=== PATIENT | male | born 1930 | race Caucasian/White ===

== ENCOUNTER 2016-10-11 12:31 | Inpatient (IN) | payer OTHER ==
[~2016-10-11] VITALS: Ht 188 cm; Wt 97.1 kg
[~2016-10-11 12:31] MED LIST: ADULT LOW DOSE81 M1 PO; ASPIR-TRIN325 M1 PO; Casodex PO; Cozaar PO; GLIPIZIDE ER2.5 M1 PO; HALCION0.25 MG PO; HYDROCHLOROTH12.5 M1 PO; HYDRODIURIL,O12.5 M2 PO; LOPRESSOR25 MG PO; LOSARTAN POTASS25 MG PO; NIACIN 50 MG TA50 MG PO; Niacin PO; Norco 7.5/325 PO; PLAVIX75 MG PO; Protonix PO; TOPROL XL6.25 MG PO; VITAMIN B12-FO1 EACH PO; ZETIA10 MG PO; ZOLADEX3.6 MG PO; oxyCODONE PO
[2016-10-11 13:50] LABS: HEMATOCRIT 33.6 % (38.0-50.0); MCH 29.1 PG (29.0-34.0); MCHC 32.7 G/DL (30.0-36.0); MCV 88.9 FL (86-99); RBC DIS.WIDTH-CV 17.2 % (11.8-14.6); RED BLOOD COUNT 3.78 M/uL (4.00-5.50); WHITE BLOOD COUNT 8.3 K/uL (4.1-10.2)
[2016-10-11 13:59] LABS: CHLORIDE 99 mEq/L (99-109); POTASSIUM 5.2 mEq/L (3.7-5.4); SODIUM 138 mEq/L (136-147)
[2016-10-11 14:01] LABS: GLUCOSE 117 mg/dL (70-99)
[2016-10-11 14:02] LABS: ANION GAP 16 MEQ/L (2-14)
[2016-10-11 14:03] LABS: TOTAL BILIRUBIN 0.9 mg/dL (0.0-1.0)
[2016-10-11 14:05] LABS: ALKALINE PHOSPHATASE 48 IU/L (3-129); GFR ESTIMATE (CALCULATED) 20 mL/min/
[2016-10-11 14:06] LABS: UREA NITROGEN (BUN) 54 mg/dL (9-23)
[2016-10-11 14:07] LABS: PLATELET COUNT 52 K/uL (156-360)
[2016-10-11 14:42] LABS: ABS NEUTROPHIL COUNT 2.1; ANISOCYTOSIS 1+; BASOPHILS 4.5 %; EOSINOPHIL ABS CT 1.9; INSTRUMENT ABS NEUTROPHIL CT 0.8 K/uL; MYELOCYTES 0.5 %; OVALOCYTES 1+; PLAT.SUFFICIENCY DECREASED
[2016-10-11] MEDS ORDERED: ASPIR 8181 M1 PO (14:50)
[2016-10-11] MEDS ORDERED: METOPROLOL TART25 MG PO (14:50)
[2016-10-11] MEDS ORDERED: CASODEX50 MG PO (14:51)
[2016-10-11] MEDS ORDERED: COZAAR100 MG PO (14:51)
[2016-10-11] MEDS ORDERED: SANTYL30 GM TP (14:52)
[2016-10-11] MEDS ORDERED: OXYCODONE HCL30 MG PO (14:52)
[2016-10-11 15:14] LABS: ADD MIUA? YES; BILIRUBIN NEGATIVE; BLOOD LARGE; COLOR YELLOW ((YELLOW)); GLUCOSE (STRIP) NEGATIVE; KETONES NEGATIVE; LEUKOCYTES NEGATIVE; NITRITE NEGATIVE; PROTEIN (STRIP) 30; SPECIFIC GRAVITY 1.013 (1.000-1.030); UROBILINOGEN 0.2 MG/DL (0.2-1.0)
[2016-10-11 15:41] LABS: BACTERIA RARE /HPF; EPITHELIAL CELLS 1+ /HPF; MUCUS NONE SEEN /LPF; RED BLOOD CELLS TNTC /HPF (0-5); WHITE BLOOD CELLS 0-5 /HPF (0-5)
[2016-10-11 16:50] LABS: C-REACTIVE PROTEIN 85.6 MG/L (0-10)
[2016-10-11 18:15] VITALS: BP 132/61
[2016-10-11 20:11] VITALS: BP 100/54
[2016-10-11 22:56] VITALS: BP 114/56
[2016-10-12 04:14] VITALS: BP 104/55
[2016-10-12 07:41] VITALS: BP 110/70
[2016-10-12 07:49] LABS: ANION GAP 9 MEQ/L (2-14); CHLORIDE 104 MEQ/L (99-109); GFR ESTIMATE (CALCULATED) 25 mL/min/; GLUCOSE 150 mg/dL (70-99); POTASSIUM 4.3 MEQ/L (3.7-5.4); SAMPLE HEMOLYSIS CHECK 0; SAMPLE ICTERIC CHECK 0; SAMPLE LIPEMIA CHECK 0; SODIUM 138 MEQ/L (136-147); UREA NITROGEN (BUN) 44 mg/dL (9-23)
[2016-10-12 08:12] LABS: POINT-OF-CARE USER ID ENVKC36
[2016-10-12 09:27] LABS: INTER. NORMALIZED RATIO 1.5; PROTHROMBIN TIME 15.3 (9.2-11.2); PTT 33.3 (25-32)
[2016-10-12 12:21] LABS: POINT-OF-CARE METER ID UU13113781
[2016-10-12 12:49] VITALS: BP 104/56
[2016-10-12 14:06] LABS: HEMATOCRIT 29.4 % (38.0-50.0); MCH 29.4 PG (29.0-34.0); MCHC 32.7 G/DL (30.0-36.0); MCV 90.2 FL (86-99); RBC DIS.WIDTH-CV 17.1 % (11.8-14.6); RED BLOOD COUNT 3.26 M/uL (4.00-5.50); WHITE BLOOD COUNT 7.5 K/uL (4.1-10.2)
[2016-10-12 14:44] LABS: ABS NEUTROPHIL COUNT 1.9; ANISOCYTOSIS 1+; BAND NEUTROPHILS 2.4 % (0-8.0); BASOPHILS 14.2 %; EOSINOPHIL ABS CT 1.6; EOSINOPHILS 21.1 % (0-5.0); IMM.PLATELET FRACTION 6.7 (1-7); INSTRUMENT ABS NEUTROPHIL CT 1.5 K/uL; LYMPHOCYTES 22.1 % (15.0-45.0); MEAN PLAT.VOLUME 11.2 uM^3 (9.0-12.4); MICROCYTOSIS 1+; PLAT.SUFFICIENCY DECREASED; POIKILOCYTOSIS 2+; SEG.NEUTROPHILS 23.5 % (46.0-76.0); SPHEROCYTES 1+
[2016-10-12 14:45] LABS: PLATELET COUNT 36 K/uL (156-360)
[2016-10-12 16:31] LABS: HEMATOCRIT 25.8 % (38.0-50.0); MCH 28.8 PG (29.0-34.0); MCHC 32.2 G/DL (30.0-36.0); MCV 89.6 FL (86-99); RBC DIS.WIDTH-CV 17.1 % (11.8-14.6); RBC DIS.WIDTH-SD 55.3 % (39-53); RED BLOOD COUNT 2.88 M/uL (4.00-5.50); WHITE BLOOD COUNT 6.4 K/uL (4.1-10.2)
[2016-10-12 16:40] LABS: POINT-OF-CARE METER ID UU14174216; POINT-OF-CARE USER ID ENVKC36
[2016-10-12 17:12] VITALS: BP 98/52
[2016-10-12 17:35] LABS: ABS NEUTROPHIL COUNT 1.4; ANISOCYTOSIS 2+; EOSINOPHIL ABS CT 1.7; HYPOCHROMASIA 3+; IMM.PLATELET FRACTION 5.9 (1-7); INSTRUMENT ABS NEUTROPHIL CT 1.7 K/uL; MACROCYTES 1+; MEAN PLAT.VOLUME 11.5 uM^3 (9.0-12.4); MICROCYTOSIS 1+; PLAT.SUFFICIENCY DECREASED; PLATELET COUNT 35 K/uL (156-360)
[2016-10-12 20:28] LABS: BASOPHIL COUNT 0.1 K/uL (0-0.1); EOSINOPHIL COUNT 0.9 K/uL (0-0.3); HEMATOCRIT 25.7 % (38.0-50.0); IMMATURE GRANULOCYTE (%) 1.1 % (0.0-0.7); IMMATURE GRANULOCYTE COUNT 0.1 K/uL; INSTRUMENT ABS NEUTROPHIL CT 0.8 K/uL; LYMPHOCYTE COUNT 1.5 K/uL (1.0-2.8); MCH 29.5 PG (29.0-34.0); MCHC 32.7 G/DL (30.0-36.0); MCV 90.2 FL (86-99); MONOCYTE (%) 43.8 % (3-12); MONOCYTE COUNT 2.7 K/uL (0-0.8); NEUTROPHIL (%) 13.6 % (45-76); NEUTROPHIL COUNT 0.8 K/uL (1.8-6.4); RBC DIS.WIDTH-SD 55.4 % (39-53); RED BLOOD COUNT 2.85 M/uL (4.00-5.50); WHITE BLOOD COUNT 6.2 K/uL (4.1-10.2)
[2016-10-12 20:55] LABS: IMM.PLATELET FRACTION 6.8 (1-7); MEAN PLAT.VOLUME 10.7 uM^3 (9.0-12.4); PLATELET COUNT 31 K/uL (156-360)
[2016-10-12 21:01] LABS: ANISOCYTOSIS 2+; ATYPICAL LYMPHOCYTE 6.1 %; BAND NEUTROPHILS 8.8 % (0-8.0); BASOPHILS 15.8 %; EOSINOPHIL ABS CT 1.3; EOSINOPHILS 20.2 % (0-5.0); HYPOCHROMASIA 2+; METAMYELOCYTES 1.7 %; MICROCYTOSIS 2+; MYELOCYTES 0.9 %; PLAT.SUFFICIENCY DECREASED; SMUDGE CELLS 13.2
[2016-10-12 21:02] LABS: LYMPHOCYTES 34.2 % (15.0-45.0)
[2016-10-12 21:50] VITALS: BP 100/52
[2016-10-13 00:32] VITALS: BP 97/44
[2016-10-13 04:43] VITALS: BP 108/56
[2016-10-13 07:00] LABS: MCH 28.8 PG (29.0-34.0); MCHC 31.9 G/DL (30.0-36.0); MCV 90.3 FL (86-99); RBC DIS.WIDTH-CV 16.9 % (11.8-14.6); RBC DIS.WIDTH-SD 55.3 % (39-53); RED BLOOD COUNT 2.99 M/uL (4.00-5.50)
[2016-10-13 07:28] LABS: ANION GAP 9 MEQ/L (2-14); CHLORIDE 107 MEQ/L (99-109); GFR ESTIMATE (CALCULATED) 38 mL/min/; GLUCOSE 118 mg/dL (70-99); MAGNESIUM 1.3 mg/dl (1.3-2.7); POTASSIUM 4.1 MEQ/L (3.7-5.4); SAMPLE HEMOLYSIS CHECK 0; SAMPLE ICTERIC CHECK 0; SAMPLE LIPEMIA CHECK 0; SODIUM 140 MEQ/L (136-147); UREA NITROGEN (BUN) 30 mg/dL (9-23)
[2016-10-13 07:50] VITALS: BP 112/73
[2016-10-13 08:00] LABS: BASOPHIL COUNT 0.1 K/uL (0-0.1); EOSINOPHIL (%) 14.1 % (0-5); EOSINOPHIL COUNT 0.7 K/uL (0-0.3); IMM.PLATELET FRACTION 5.8 (1-7); IMMATURE GRANULOCYTE (%) 1.8 % (0.0-0.7); IMMATURE GRANULOCYTE COUNT 0.1 K/uL; INSTRUMENT ABS NEUTROPHIL CT 0.7 K/uL; LYMPHOCYTE COUNT 1.2 K/uL (1.0-2.8); MEAN PLAT.VOLUME 11.7 uM^3 (9.0-12.4); MONOCYTE (%) 45.3 % (3-12); MONOCYTE COUNT 2.3 K/uL (0-0.8); NEUTROPHIL (%) 14.1 % (45-76); NEUTROPHIL COUNT 0.7 K/uL (1.8-6.4); PLAT.SUFFICIENCY DECREASED
[2016-10-13 08:04] LABS: PLATELET COUNT 27 K/uL (156-360)
[2016-10-13 11:35] VITALS: BP 98/51
[2016-10-13 15:23] LABS: IMM.RETIC FRACTION 15.9 % (3-19); RETIC HGB EQUIVALENT 31.5 (28-36); RETICULOCYTE COUNT 0.9 % (0.5-1.8)
[2016-10-13 15:49] LABS: D-DIMER LATEX POSITIVE
[2016-10-13 16:07] LABS: ALKALINE PHOSPHATASE 41 IU/L (3-129); DIRECT BILIRUBIN 0.1 mg/dL (0.0-0.3); LACTATE DEHYDROGENASE 167 IU/L (20-246); TOTAL BILIRUBIN 0.5 MG/DL (0.0-1.0)
[2016-10-13 17:30] VITALS: BP 114/59
[2016-10-13 18:21] LABS: SCHISTOCYTES RARE
[2016-10-13 19:30] VITALS: BP 128/61
[2016-10-14] VITALS (15 sets, daily range): BP systolic 110–143; BP diastolic 53–69
[2016-10-14 07:10] LABS: BASOPHIL COUNT 0.1 K/uL (0-0.1); EOSINOPHIL COUNT 0.5 K/uL (0-0.3); HEMATOCRIT 24.3 % (38.0-50.0); IMMATURE GRANULOCYTE (%) 3.1 % (0.0-0.7); IMMATURE GRANULOCYTE COUNT 0.2 K/uL; INSTRUMENT ABS NEUTROPHIL CT 1.2 K/uL; LYMPHOCYTE COUNT 1.2 K/uL (1.0-2.8); MCH 28.7 PG (29.0-34.0); MCHC 32.5 G/DL (30.0-36.0); MCV 88.4 FL (86-99); MONOCYTE (%) 47.6 % (3-12); MONOCYTE COUNT 2.9 K/uL (0-0.8); NEUTROPHIL (%) 20.3 % (45-76); NEUTROPHIL COUNT 1.2 K/uL (1.8-6.4); RBC DIS.WIDTH-CV 16.9 % (11.8-14.6); RBC DIS.WIDTH-SD 54.8 % (39-53); RED BLOOD COUNT 2.75 M/uL (4.00-5.50); WHITE BLOOD COUNT 6.1 K/uL (4.1-10.2)
[2016-10-14 07:36] LABS: ANION GAP 8 MEQ/L (2-14); CHLORIDE 106 MEQ/L (99-109); GFR ESTIMATE (CALCULATED) 51 mL/min/; GLUCOSE 118 mg/dL (70-99); MAGNESIUM 1.2 mg/dl (1.3-2.7); POTASSIUM 4.2 MEQ/L (3.7-5.4); SAMPLE HEMOLYSIS CHECK 0; SAMPLE ICTERIC CHECK 0; SAMPLE LIPEMIA CHECK 0; SODIUM 139 MEQ/L (136-147); UREA NITROGEN (BUN) 22 mg/dL (9-23)
[2016-10-14 07:43] LABS: PLAT.SUFFICIENCY VERY DECREASED
[2016-10-14 08:58] LABS: IMM.PLATELET FRACTION 4.9 (1-7); MEAN PLAT.VOLUME 10.7 uM^3 (9.0-12.4); PLATELET COUNT 28 K/uL (156-360)
[2016-10-14 11:10] LABS: POINT-OF-CARE METER ID UU13113781
[2016-10-14 16:18] LABS: POINT-OF-CARE METER ID UU13113781
[2016-10-14 18:59] LABS: HEMATOCRIT 34.1 % (38.0-50.0); MCV 88.1 FL (86-99)
[2016-10-15] VITALS (15 sets, daily range): BP systolic 102–134; BP diastolic 51–73
[2016-10-15 01:07] LABS: BASOPHIL COUNT 0.1 K/uL (0-0.1); EOSINOPHIL COUNT 0.6 K/uL (0-0.3); HEMATOCRIT 32.4 % (38.0-50.0); LYMPHOCYTE COUNT 1.3 K/uL (1.0-2.8); MCH 29.1 PG (29.0-34.0); MCHC 33.3 G/DL (30.0-36.0); MCV 87.3 FL (86-99); MONOCYTE (%) 50.9 % (3-12); MONOCYTE COUNT 4.1 K/uL (0-0.8); NEUTROPHIL (%) 24.5 % (45-76); RBC DIS.WIDTH-CV 15.9 % (11.8-14.6)
[2016-10-15 01:13] LABS: RED BLOOD COUNT 3.71 M/uL (4.00-5.50)
[2016-10-15 01:18] LABS: TOTAL BILIRUBIN 0.8 mg/dL (0.0-1.0)
[2016-10-15 01:19] LABS: ALKALINE PHOSPHATASE 39 IU/L (3-129)
[2016-10-15 01:20] LABS: INTER. NORMALIZED RATIO 1.5; PROTHROMBIN TIME 15.1 (9.2-11.2); PTT 34.5 (25-32)
[2016-10-15 01:22] LABS: DIRECT BILIRUBIN 0.3 mg/dL (0.0-0.3)
[2016-10-15 01:37] LABS: FIBRINOGEN 131 MG/DL (160-450)
[2016-10-15 01:50] LABS: IMM.PLATELET FRACTION 6.3 (1-7); MEAN PLAT.VOLUME 11.2 uM^3 (9.0-12.4); PLATELET COUNT 31 K/uL (156-360)
[2016-10-15 07:08] LABS: BASOPHIL COUNT 0.1 K/uL (0-0.1); EOSINOPHIL (%) 12.7 % (0-5); EOSINOPHIL COUNT 0.9 K/uL (0-0.3); HEMATOCRIT 29.8 % (38.0-50.0); IMMATURE GRANULOCYTE COUNT 0.1 K/uL; INSTRUMENT ABS NEUTROPHIL CT 1.2 K/uL; LYMPHOCYTE COUNT 1.1 K/uL (1.0-2.8); MCH 28.9 PG (29.0-34.0); MCHC 32.6 G/DL (30.0-36.0); MCV 88.7 FL (86-99); MONOCYTE (%) 50.1 % (3-12); MONOCYTE COUNT 3.5 K/uL (0-0.8); NEUTROPHIL (%) 17.1 % (45-76); NEUTROPHIL COUNT 1.2 K/uL (1.8-6.4); RBC DIS.WIDTH-SD 51.8 % (39-53); RED BLOOD COUNT 3.36 M/uL (4.00-5.50); WHITE BLOOD COUNT 6.9 K/uL (4.1-10.2)
[2016-10-15 07:29] LABS: ANION GAP 6 MEQ/L (2-14); CHLORIDE 102 MEQ/L (99-109); GFR ESTIMATE (CALCULATED) 51 mL/min/; GLUCOSE 124 mg/dL (70-99); MAGNESIUM 1.3 mg/dl (1.3-2.7); POTASSIUM 4.6 MEQ/L (3.7-5.4); SAMPLE HEMOLYSIS CHECK 0; SAMPLE ICTERIC CHECK 0; SAMPLE LIPEMIA CHECK 0; SODIUM 138 MEQ/L (136-147); UREA NITROGEN (BUN) 20 mg/dL (9-23)
[2016-10-15 08:28] LABS: IMM.PLATELET FRACTION 6.2 (1-7); MEAN PLAT.VOLUME 11.3 uM^3 (9.0-12.4); PLAT.SUFFICIENCY DECREASED
[2016-10-15 08:29] LABS: PLATELET COUNT 26 K/uL (156-360)
[2016-10-15 11:07] LABS: FIBRINOGEN 152 MG/DL (160-450); INTER. NORMALIZED RATIO 1.4; PROTHROMBIN TIME 14.1 (9.2-11.2); PTT 32.7 (25-32)
[2016-10-15 12:39] LABS: BASOPHIL COUNT 0.1 K/uL (0-0.1); EOSINOPHIL COUNT 0.9 K/uL (0-0.3); HEMATOCRIT 32.2 % (38.0-50.0); IMMATURE GRANULOCYTE (%) 2.4 % (0.0-0.7); IMMATURE GRANULOCYTE COUNT 0.2 K/uL; INSTRUMENT ABS NEUTROPHIL CT 1.1 K/uL; LYMPHOCYTE COUNT 1.1 K/uL (1.0-2.8); MCH 29.4 PG (29.0-34.0); MCHC 32.9 G/DL (30.0-36.0); MCV 89.4 FL (86-99); MONOCYTE (%) 52.2 % (3-12); MONOCYTE COUNT 3.8 K/uL (0-0.8); NEUTROPHIL (%) 15.7 % (45-76); NEUTROPHIL COUNT 1.1 K/uL (1.8-6.4); RBC DIS.WIDTH-CV 16.2 % (11.8-14.6); RBC DIS.WIDTH-SD 53.1 % (39-53); WHITE BLOOD COUNT 7.2 K/uL (4.1-10.2)
[2016-10-15 13:15] LABS: BASELINE PT 14.5 SEC (9.9-11.1)
[2016-10-15 13:16] LABS: 1:1 MIXING STUDY PT 12.2 SEC
[2016-10-15 13:18] LABS: PTT BASELINE 34.5 SEC (25-32)
[2016-10-15 13:19] LABS: 90 MINUTE INCUBATION PTT 36.1 SEC; IMMEDIATE MIX PTT 34.2 SEC
[2016-10-15 13:35] LABS: IMM.PLATELET FRACTION 6.8 (1-7); MEAN PLAT.VOLUME 10.7 uM^3 (9.0-12.4); PLAT.SUFFICIENCY VERY DECREASED; PLATELET COUNT 26 K/uL (156-360)
[2016-10-15 16:28] LABS: POINT-OF-CARE METER ID UU14188625
[2016-10-16] VITALS (10 sets, daily range): BP systolic 100–138; BP diastolic 51–68
[2016-10-16 07:48] LABS: POINT-OF-CARE METER ID UU14188625
[2016-10-16 07:50] LABS: HEMATOCRIT 29.8 % (38.0-50.0); MCH 28.8 PG (29.0-34.0); MCHC 31.5 G/DL (30.0-36.0); MCV 91.4 FL (86-99); MEAN PLAT.VOLUME 10.4 uM^3 (9.0-12.4); RBC DIS.WIDTH-CV 16.3 % (11.8-14.6); RBC DIS.WIDTH-SD 55.2 % (39-53); RED BLOOD COUNT 3.26 M/uL (4.00-5.50); WHITE BLOOD COUNT 8.3 K/uL (4.1-10.2)
[2016-10-16 08:03] LABS: ANION GAP 11 MEQ/L (2-14); CHLORIDE 99 MEQ/L (99-109); GFR ESTIMATE (CALCULATED) 56 mL/min/; GLUCOSE 122 mg/dL (70-99); SAMPLE HEMOLYSIS CHECK 1; SAMPLE ICTERIC CHECK 0; SAMPLE LIPEMIA CHECK 0; SODIUM 139 MEQ/L (136-147); UREA NITROGEN (BUN) 20 mg/dL (9-23)
[2016-10-16 08:05] LABS: POTASSIUM 4.4 MEQ/L (3.7-5.4)
[2016-10-16 08:29] LABS: ABS NEUTROPHIL COUNT 3.6; ANISOCYTOSIS 1+; BAND NEUTROPHILS 4.7 % (0-8.0); BASOPHILS 10.3 %; EOSINOPHIL ABS CT 0.5; HEMATOLOGY COMMENT 1 SN; INSTRUMENT ABS NEUTROPHIL CT 1.9 K/uL; METAMYELOCYTES 4.7 %; MICROCYTOSIS 1+; PLAT.SUFFICIENCY DECREASED; PLATELET COUNT 54 K/uL (156-360); POIKILOCYTOSIS 1+; SMUDGE CELLS 37.4
[2016-10-16 09:35] LABS: EOSINOPHILS 6.5 % (0-5.0); LYMPHOCYTES 7.5 % (15.0-45.0); SEG.NEUTROPHILS 39.2 % (46.0-76.0)
[2016-10-16 10:37] LABS: FIBRINOGEN 191 MG/DL (160-450); INTER. NORMALIZED RATIO 1.3; PROTHROMBIN TIME 13.4 (9.2-11.2); PTT 32.8 (25-32)
[2016-10-16 11:38] LABS: POINT-OF-CARE METER ID UU14188625
[2016-10-16 16:20] LABS: POINT-OF-CARE METER ID UU14188625
[2016-10-16 17:09] LABS: ADD MIUA? YES; BILIRUBIN NEGATIVE; BLOOD LARGE; COLOR AMBER ((YELLOW)); GLUCOSE (STRIP) NEGATIVE; KETONES NEGATIVE; LEUKOCYTES NEGATIVE; NITRITE NEGATIVE; PROTEIN (STRIP) 30; SPECIFIC GRAVITY 1.018 (1.000-1.030); UROBILINOGEN 0.2 MG/DL (0.2-1.0)
[2016-10-16 18:22] LABS: RED BLOOD CELLS TNTC /HPF (0-5); WHITE BLOOD CELLS 0-5 /HPF (0-5)
[2016-10-16 18:23] LABS: BACTERIA 1+ /HPF; EPITHELIAL CELLS NONE SEEN /HPF; MUCUS NONE SEEN /LPF; UCUL ADDED? NO
[2016-10-17 04:05] VITALS: BP 124/57
[2016-10-18 06:07] LABS: ADD dRVVT REFLEX? Y; DRVVT Mixing Study Interp Not Indicated (()); dRVVT Screen 48 sec (<=45)
[2016-10-18 06:40] LABS: ADD PTT REFLEX? Y; PTT-LA 59 sec (<=40); PTT-LA Reflex Has been added (())
[2016-10-18 19:14] LABS: Flow Number of Markers 26 (()); Flow Spec Viability 98 % (()); Flow Specimen Type PERIPHERAL BLOOD (())
== END 2016-10-17 07:10 | DRG 682 ==
LOC: EME 12:31 → 4EAST 15:31 → EDOF 15:31 → 4EAST 18:00 → 5SOUTH 10-14 19:36
PROVIDERS: Emergency Medicine; Hospitalist; Internal Medicine; Internal Medicine Hematology & Oncology; Internal Medicine Medical Oncology; Internal Medicine Nephrology; Nurse Practitioner Adult Health; Physician Assistant; Radiology Diagnostic Radiology
PROC: 30233N1 Transfusion of Nonautologous Red Blood Cells into Peripheral Vein, Percutaneous Approach (ICD-10-PCS; principal; 2016-10-14)
PROC: 30233R1 Transfusion of Nonautologous Platelets into Peripheral Vein, Percutaneous Approach (ICD-10-PCS; 2016-10-15)
PROC: 30233K1 Transfusion of Nonautologous Frozen Plasma into Peripheral Vein, Percutaneous Approach (ICD-10-PCS; 2016-10-15)
DX: N17.9 Acute kidney failure, unspecified (principal); E86.0 Dehydration; J90 Pleural effusion, not elsewhere classified; R31.9 Hematuria, unspecified; I25.10 Atherosclerotic heart disease of native coronary artery without angina pectoris; Z95.5 Presence of coronary angioplasty implant and graft; C61 Malignant neoplasm of prostate; E11.621 Type 2 diabetes mellitus with foot ulcer; L97.509 Non-pressure chronic ulcer of other part of unspecified foot with unspecified severity; E11.22 Type 2 diabetes mellitus with diabetic chronic kidney disease; D72.1 Eosinophilia; N30.91 Cystitis, unspecified with hematuria; E46 Unspecified protein-calorie malnutrition; Z68.23 Body mass index [BMI] 23.0-23.9, adult; D63.8 Anemia in other chronic diseases classified elsewhere; R33.9 Retention of urine, unspecified; I12.9 Hypertensive chronic kidney disease with stage 1 through stage 4 chronic kidney disease, or unspecified chronic kidney disease; N18.3 Chronic kidney disease, stage 3 (moderate); M19.042 Primary osteoarthritis, left hand; M19.041 Primary osteoarthritis, right hand; R04.0 Epistaxis; D65 Disseminated intravascular coagulation [defibrination syndrome]; I25.2 Old myocardial infarction; Z87.891 Personal history of nicotine dependence
CPT/HCPCS: 31500; 70450; 71010; 71250; 76770; 80048; 80053; 80076; 81003; 82272; 82436; 82945; 82948; 83605; 83615; 83615 91; 83735; 83986 90; 84100; 84133; 84157; 84300; 84403; 85007; 85014; 85018; 85025; 85025 91; 85045; 85060; 85378; 85384; 85597 90; 85610; 85611; 85613 90; 85730; 85730 90; 85732; 85999; 86140; 86880; 86900; 86901; 86920; 87040; 89051; 89190; 92950; 94799; 99281; 99285; G0103; J1815; J2543; J3370; J3475; J7030; J7042; J7050; J7120; P9016; P9017; P9035